=== PATIENT | female | born 1950 | race Caucasian/White ===

== ENCOUNTER 2018-06-12 13:10 | Outpatient (CLI) | payer OTHER | END 2018-06-12 13:21 | disposition home or self-care (01) | LOC: RAD 13:10 | DX: M25.511 Pain in right shoulder (principal); M25.512 Pain in left shoulder; M17.11 Unilateral primary osteoarthritis, right knee ==

== ENCOUNTER 2018-07-11 08:07 | Outpatient (CLI) | payer OTHER | END 2018-07-11 08:17 | disposition home or self-care (01) | LOC: MRI 08:07 | DX: M50.122 Cervical disc disorder at C5-C6 level with radiculopathy (principal); I63.89 Other cerebral infarction | CPT/HCPCS: 70551; 72141 ==

== ENCOUNTER 2018-09-07 13:30 | Outpatient (CLI) | payer OTHER | END 2018-09-07 13:32 | disposition home or self-care (01) | LOC: MAMO-SONO 13:30 | DX: Z12.31 Encounter for screening mammogram for malignant neoplasm of breast (principal); Z87.898 Personal history of other specified conditions; N64.89 Other specified disorders of breast ==

== ENCOUNTER 2021-07-03 17:40 | Emergency (ER) | payer OTHER ==
[~2021-07-03] VITALS: Ht 154.9 cm; Wt 77.1 kg
[2021-07-03] MEDS ORDERED: COZAAR100 MG (18:28)
[2021-07-03] MEDS ORDERED: FENERGAN (18:29)
[2021-07-03] MEDS ORDERED: SYNTHROID88 MCG (18:29)
== END 2021-07-03 19:28 | disposition home or self-care (01) ==
LOC: ER 17:40
DX: B02.9 Zoster without complications (principal); B01.9 Varicella without complication

== ENCOUNTER 2021-09-03 10:47 | Outpatient (CLI) | payer OTHER ==
[~2021-09-03 10:47] MED LIST: COZAAR100 MG; FENERGAN; SYNTHROID88 MCG
== END 2021-09-03 10:53 | disposition home or self-care (01) ==
LOC: RAD 10:47
PROVIDERS: ATTEND Physical Medicine & Rehabilitation
DX: M17.0 Bilateral primary osteoarthritis of knee (principal)

== ENCOUNTER 2024-04-27 17:50 | Emergency (ER) | payer OTHER ==
[~2024-04-27] VITALS: Ht 152.4 cm; Wt 79.4 kg
[~2024-04-27 17:50] MED LIST changes: +CYCLOBENZAPRINE10 MG PO; +DICLOFENAC POTA50 MG PO
[2024-04-27] MEDS ORDERED: SIMVASTATIN5 MG PO (18:03)
[2024-04-27] MEDS ORDERED: TETANUS & DIPHTHERIA TOX,ADULT 0.5 ML VIAL IM ONE (19:00)
[2024-04-27] MEDS ORDERED: LIDOCAINE HCL 1% 10ML VIAL PERCUT ONE (19:00)
[2024-04-27] MEDS ORDERED: CEFTRIAXONE SODIUM 1,000 MG VIAL ONE (19:00)
[2024-04-27] MEDS ORDERED: TETANUS DIPHTHERIA TOX. ADSOR 5 ML VIAL IM ONE (19:00)
[2024-04-27] MEDS ORDERED: CEFTRIAXONE SODIUM 1,000 MG VIAL IM ONE (19:00)
[2024-04-27] MEDS ORDERED: LIDOCAINE HCL 1% 10ML VIAL ONE (19:01)
[2024-04-27] MEDS ORDERED: CEPHALEXIN500 M1 PO (20:09)
[2024-04-27] MEDS ORDERED: PEPCID AC20 MG PO (20:09)
== END 2024-04-27 20:21 | disposition home or self-care (01) ==
LOC: ER 17:51
DX: S91.321A Laceration with foreign body, right foot, initial encounter (principal); W45.8XXA Other foreign body or object entering through skin, initial encounter; W22.09XA Striking against other stationary object, initial encounter; Y93.89 Activity, other specified; Y92.018 Other place in single-family (private) house as the place of occurrence of the external cause; E78.00 Pure hypercholesterolemia, unspecified; E03.8 Other specified hypothyroidism; I10 Essential (primary) hypertension
CPT/HCPCS: 12004; 90471; 90714; 96365; 99282; J0696; J1670; J2001

== ENCOUNTER 2024-05-13 12:15 | Emergency (ER) | payer OTHER ==
[~2024-05-13] VITALS: Ht 154.9 cm; Wt 77.1 kg
[~2024-05-13 12:15] MED LIST changes: +CEPHALEXIN500 M1 PO; +PEPCID AC20 MG PO; +SIMVASTATIN5 MG PO
== END 2024-05-13 13:57 | disposition home or self-care (01) ==
LOC: ER 12:16
DX: Z48.02 Encounter for removal of sutures (principal)

== ENCOUNTER 2024-11-13 08:52 | Outpatient (CLI) | payer OTHER | END 2024-11-13 08:53 | disposition home or self-care (01) | LOC: NUCLEAR 08:52 | PROVIDERS: ATTEND Physical Medicine & Rehabilitation | DX: I87.2 Venous insufficiency (chronic) (peripheral) (principal) ==

== ENCOUNTER 2024-11-13 10:14 | Outpatient (CLI) | payer OTHER | END 2024-11-13 10:25 | disposition home or self-care (01) | LOC: SONOGRAMA 10:14 | DX: E06.5 Other chronic thyroiditis (principal); E06.3 Autoimmune thyroiditis ==

== ENCOUNTER 2024-11-27 13:12 | Outpatient (CLI) | payer OTHER | END 2024-11-27 13:13 | disposition home or self-care (01) | LOC: NUCLEAR 13:12 | PROVIDERS: ATTEND General Practice | DX: M85.80 Other specified disorders of bone density and structure, unspecified site (principal); M81.0 Age-related osteoporosis without current pathological fracture ==

== ENCOUNTER 2025-02-14 09:28 | Outpatient (CLI) | payer OTHER | END 2025-02-14 09:34 | disposition home or self-care (01) | LOC: MAMO-SONO 09:28 | PROVIDERS: ATTEND General Practice | DX: N64.4 Mastodynia (principal); N60.21 Fibroadenosis of right breast; N60.22 Fibroadenosis of left breast; Z12.31 Encounter for screening mammogram for malignant neoplasm of breast ==

== ENCOUNTER 2025-03-19 11:26 | Outpatient (CLI) | payer OTHER | END 2025-03-19 11:29 | disposition home or self-care (01) | LOC: RAD 11:26 | PROVIDERS: ATTEND Physical Medicine & Rehabilitation | DX: M25.511 Pain in right shoulder (principal); M17.11 Unilateral primary osteoarthritis, right knee; M17.12 Unilateral primary osteoarthritis, left knee; M25.522 Pain in left elbow ==

== ENCOUNTER 2025-04-25 07:00 | Day surgery (SDC) | payer OTHER ==
[2025-04-25] MEDS ORDERED: DIPHENHYDRAMINE HCL 50 MG/ML VIAL 1ML IV ONE (09:30)
[2025-04-25] MEDS ORDERED: fentaNYL CITRATE 50 MCG/ML AMPUL IV ONE (09:30)
[2025-04-25] MEDS ORDERED: MIDAZOLAM HCL 2 MG/2 ML VIAL IV ONE (09:30)
== END 2025-04-25 10:15 | disposition home or self-care (01) ==
LOC: AMB-ENDOS 07:00
PROVIDERS: ATTEND Surgery
DX: D12.0 Benign neoplasm of cecum (principal); D12.2 Benign neoplasm of ascending colon; D12.3 Benign neoplasm of transverse colon; D12.5 Benign neoplasm of sigmoid colon; K59.00 Constipation, unspecified; Z86.0100 Personal history of colon polyps, unspecified; K63.5 Polyp of colon; K57.30 Diverticulosis of large intestine without perforation or abscess without bleeding